=== PATIENT | male | born 1970 | race Caucasian/White ===

== ENCOUNTER → 2017-09-20 | Outpatient (CLI) | payer BC | LOC: OD 07:13 | PROVIDERS: ATTEND Urology | DX: E29.1 Testicular hypofunction (principal) | CPT/HCPCS: 36415; 84403 ==

== ENCOUNTER → 2017-11-04 | Outpatient (CLI) | payer BC ==
[2017-11-04 09:52] LABS: HEMATOCRIT 46.2 % (37.9-51.0); HEMOGLOBIN 15.7 g/dL (13.5-17.0); MEAN CORPUSCULAR HEMOGLOBIN 32.2 pg (27.0-33.4); MEAN CORPUSCULAR HGB CONC 33.9 g/dL (32.0-36.0); MEAN CORPUSCULAR VOLUME 95 fl (80-97); PLATELET COUNT 253 10^3/uL (150-450); RED BLOOD COUNT 4.87 10^6/uL (4.35-5.55); RED CELL DISTRIBUTION WIDTH 13.2 % (11.5-14.0); WHITE BLOOD COUNT 4.4 10^3/uL (4.0-10.5)
[2017-11-04 10:15] LABS: ALANINE AMINOTRANSFERASE 71 U/L (21-72); ALBUMIN 4.3 g/dL (3.5-5.0); ALKALINE PHOSPHATASE 72 U/L (38-126); ANION GAP 13 (5-19); ASPARTATE AMINO TRANSFERASE 36 U/L (17-59); BILIRUBIN,DIRECT 0.2 mg/dL (0.0-0.4); BILIRUBIN,TOTAL 0.2 mg/dL (0.2-1.3); BLOOD UREA NITROGEN 11 mg/dL (7-20); CALCIUM 9.6 mg/dL (8.4-10.2); CARBON DIOXIDE 26 mmol/L (22-30); CHLORIDE 103 mmol/L (98-107); GLUCOSE 95 mg/dL (75-110); POTASSIUM 4.6 mmol/L (3.6-5.0); SODIUM 141.6 mmol/L (137-145); TOTAL PROTEIN 6.5 g/dL (6.3-8.2)
== END ==
LOC: OD 08:35
PROVIDERS: ATTEND Urology
DX: E29.1 Testicular hypofunction (principal)
CPT/HCPCS: 36415; 80053; 84403; 85027

== ENCOUNTER 2019-02-08 16:53 | Emergency (ER) | payer BC ==
[2019-02-08 17:14] VITALS: BP 178/96
[2019-02-08] MEDS ORDERED: NORMAL SALINE 1000 ML 1,000 ML IV ONE (17:34)
[2019-02-08] MEDS ORDERED: ONDANSETRON HCL INJ/PF 4 MG/2 ML SDV IV ONE (17:34)
[2019-02-08] MEDS ORDERED: MORPHINE SULFATE 10 MG/ML INJ IV ONE (17:35)
[2019-02-08] MEDS ORDERED: KETOROLAC TROMETHAMINE INJ/PF 30 MG/1 ML SDV IV ONE (17:35)
--- NOTE | 2019-02-08 17:37 | ER Document Report ---
Addendum entered and electronically signed by DILAN WATTS PA-C 02/08/19 20:15: Course - Re-evaluation Re-evalutation: 02/08/19 20:15 Pt cannot get to a pharmacy tonight so meds will be given here and he can fill the rx tomorrow morning. - Vital Signs Vital signs: Temp Pulse Resp BP Pulse Ox 97.8 F 74 17 178/96 H 99 02/08/19 17:12 02/08/19 17:12 02/08/19 17:12 02/08/19 17:12 02/08/19 17:12 - Laboratory Result Diagrams: 02/08/19 17:50 02/08/19 17:50 Laboratory results interpreted by me: 02/08/19 02/08/19 02/08/19 17:50 17:50 17:50 WBC 10.8 H Seg Neutrophils % 86.1 H Lymphocytes % 8.2 L Absolute Neutrophils 9.3 H ALT 130 H Urine Ketones 20 H Urine Blood LARGE H Ur Leukocyte Esterase MODERATE H Urine Ascorbic Acid 40 H Original Note: ED General - General Chief Complaint: Flank Pain Stated Complaint: FLANK PAIN Time Seen by Provider: 02/08/19 17:30 Primary Care Provider: MINDY MURRIETA MD [Primary Care Provider] - Follow up as needed TRAVEL OUTSIDE OF THE [place] IN LAST 30 DAYS: No - HPI Notes: Patient is a 49-year-old male with no significant past medical history aside from kidney stones who presents complaining of right flank pain that is now to his right lower abdomen that began last night. Patient states that the pain has been coming in waves with associated nausea and vomiting. Patient states that he has not been urinating today. Patient states that the symptoms are similar to previous kidney stone flareups. No surgical history to his abdomen. Denies any headache, fever, URI, sore throat, chest pain, palpitations, syncope, cough, shortness of breath, wheeze, dyspnea, diarrhea, loss of control of bowel or bladder, numbness/tingling, saddle anesthesia, muscle paralysis/weakness, or rash. - Related Data Allergies/Adverse Reactions: naproxen Allergy (Verified 02/08/19 17:08) Past Medical History - Social History Smoking Status: Former Smoker Chew tobacco use (# tins/day): No Frequency of alcohol use: Occasional Drug Abuse: None Family History: Reviewed & Not Pertinent Patient has suicidal ideation: No Patient has homicidal ideation: No Renal/ Medical History: Reports: Hx Kidney Stones. Denies: Hx Peritoneal Dialysis Past Surgical History: Reports: Hx Orthopedic Surgery - right elbow, left wrist Review of Systems - Review of Systems -: Yes All other systems reviewed and negative Physical Exam - Vital signs Vitals: Temp Pulse Resp BP Pulse Ox 97.8 F 74 17 178/96 H 99 02/08/19 17:12 02/08/19 17:12 02/08/19 17:12 02/08/19 17:12 02/08/19 17:12 - Notes Notes: PHYSICAL EXAMINATION: GENERAL: Well-appearing, well-nourished and in no acute distress. LUNGS: Breath sounds clear to auscultation bilaterally and equal. No wheezes rales or rhonchi. HEART: Regular rate and rhythm without murmurs, rubs, gallops. ABDOMEN: Soft, nontender, nondistended abdomen. No guarding, no rebound. Normal bowel sounds present. + mild rt CVA tenderness bilaterally. Musculoskeletal: FROM to passive/active. Strength 5+/5. Extremities: No cyanosis, clubbing, or edema b/l. Peripheral pulses 2+. Capillary refill less than 3 seconds. NEUROLOGICAL: Normal speech, normal gait. PSYCH: Normal mood, normal affect. SKIN: Warm, Dry, normal turgor, no rashes or lesions noted. Course - Re-evaluation Re-evalutation: 02/08/19 19:53 Patient is an afebrile, well-hydrated, 49-year-old male who presents with proximal right 4 mm ureteral stone and possible mild UTI. Vitals are acceptable without significant tachycardia, tachypnea, or hypoxia. PE is otherwise un remarkable. CBC shows mildly elevated white count. CMP unremarkable. Urinalysis is questionable for urinary infection. I did call and consult with urology, Dr. Winslow (purdum), who recommends outpatient management with antibiotics and follow-up in their office. See CT scan report. No further work-up warranted at this time. Patient is nontoxic-appearing and is able to tolerate p.o. without. Low suspicion/risk for acute appendicitis, bowel obstruction, acute cholecystitis, perforated diverticulitis, incarcerated hernia, pancreatitis, perforated ulcer, peritonitis, sepsis, testicular torsion, or other systemic emergent condition at this time. Patient is aware that his condition can change from initial presentation and he needs to monitor symptoms closely and seek medical attention if any acute changes. Conservative measures otherwise for symptoms. Recheck with PCM in 3-5 days. Schedule appointment with [facility] urology as reviewed. Return to the ED with any worsening/co ncerning symptoms otherwise as reviewed in discharge. Patient is in agreement. - Vital Signs Vital signs: Temp Pulse Resp BP Pulse Ox 97.8 F 74 17 178/96 H 99 02/08/19 17:12 02/08/19 17:12 02/08/19 17:12 02/08/19 17:12 02/08/19 17:12 - Laboratory Result Diagrams: 02/08/19 17:50 02/08/19 17:50 Laboratory results interpreted by me: 02/08/19 02/08/19 02/08/19 17:50 17:50 17:50 WBC 10.8 H Seg Neutrophils % 86.1 H Lymphocytes % 8.2 L Absolute Neutrophils 9.3 H ALT 130 H Urine Ketones 20 H Urine Blood LARGE H Ur Leukocyte Esterase MODERATE H Urine Ascorbic Acid 40 H Discharge - Discharge Clinical Impression: Right ureteral stone, Dysuria Condition: Stable Disposition: HOME, SELF-CARE Additional Instructions: Push fluids (i.e. water, cranberry juice) Proper hygenic technique Keep the skin clean Tylenol/ibuprofen as needed May use over the counter AZO for burning with urination Take medications as directed F/u with your PCM in 3-5 days for a recheck Schedule appointment with [facility] urology. Return to the ED with any worsening symptoms and/or development of fever, headache, chest pain, palpitations, syncope, shortness of breath, trouble breathing, abdominal pain, n/v/d, blood in stool/urine, loss of control of bowel/bladder, urinary retention, or other worsening symptoms that are concerning to you. Prescriptions: Cephalexin Monohydrate [Keflex 500 mg Capsule] 500 mg PO TID #21 capsule Morphine Sulfate [Morphine Ir 15 Mg Tablet] 15 mg PO TID #12 tablet Ondansetron [Zofran Odt 4 mg Tablet] 1 - 2 tab PO Q4H PRN #15 tab.rapdis PRN Reason: For Nausea/Vomiting Tamsulosin HCl [Flomax] 0.4 mg PO DAILY #10 cap.er.24h Forms: Elevated Blood Pressure Referrals: MINDY MURRIETA MD [Primary Care Provider] - Follow up as needed [facility] [Provider Group] - Follow up in 3-5 days
[2019-02-08 18:12] LABS: ABSOLUTE LYMPHOCYTES (AUTO) 0.9 10^3/uL (0.5-4.7); ABSOLUTE MONOCYTES (AUTO) 0.5 10^3/uL (0.1-1.4); ABSOLUTE NEUT (AUTO) 9.3 10^3/uL (1.7-8.2); BASOPHILS % (AUTO) 0.4 % (0-2); EOSINOPHILS % (AUTO) 0.4 % (0-6); HEMATOCRIT 42.3 % (37.9-51.0); HEMOGLOBIN 14.8 g/dL (13.5-17.0); LYMPHOCYTES % (AUTO) 8.2 % (13-45); MEAN CORPUSCULAR HEMOGLOBIN 32.4 pg (27.0-33.4); MEAN CORPUSCULAR HGB CONC 34.9 g/dL (32.0-36.0); MEAN CORPUSCULAR VOLUME 93 fl (80-97); MONOCYTES % (AUTO) 4.9 % (3-13); PLATELET COUNT 248 10^3/uL (150-450); RED BLOOD COUNT 4.56 10^6/uL (4.35-5.55); RED CELL DISTRIBUTION WIDTH 12.9 % (11.5-14.0); SEGMENTED NEUTROPHILS % (AUTO) 86.1 % (42-78); TOTAL CELLS COUNTED % (AUTO) 100 %; WHITE BLOOD COUNT 10.8 10^3/uL (4.0-10.5)
[2019-02-08 18:35] LABS: ALANINE AMINOTRANSFERASE 130 U/L (21-72); ALBUMIN 4.6 g/dL (3.5-5.0); ALKALINE PHOSPHATASE 99 U/L (38-126); ANION GAP 10 (5-19); ASPARTATE AMINO TRANSFERASE 55 U/L (17-59); BILIRUBIN,DIRECT 0.2 mg/dL (0.0-0.4); BILIRUBIN,TOTAL 0.6 mg/dL (0.2-1.3); BLOOD UREA NITROGEN 13 mg/dL (7-20); CALCIUM 9.8 mg/dL (8.4-10.2); CARBON DIOXIDE 26 mmol/L (22-30); CHLORIDE 101 mmol/L (98-107); GLUCOSE 95 mg/dL (75-110); LIPASE 77.2 U/L (23-300); POTASSIUM 4.2 mmol/L (3.6-5.0); SODIUM 137.1 mmol/L (137-145); TOTAL PROTEIN 7.3 g/dL (6.3-8.2)
[2019-02-08 18:43] LABS: APPEARANCE,URINE SLIGHTLY-CLOUDY; BILIRUBIN,URINE NEGATIVE (NEGATIVE); CALCIUM OXALATE CRYSTALS,URINE RARE /HPF; COLOR,URINE YELLOW; GLUCOSE, URINE NEGATIVE (NEGATIVE); KETONES,URINE 20 mg/dL (NEGATIVE); LEUKOCYTE ESTERASE,URINE MODERATE (NEGATIVE); NITRITE,URINE NEGATIVE (NEGATIVE); PROTEIN,URINE NEGATIVE (NEGATIVE); URINE SPECIFIC GRAVITY 1.023; UROBILINOGEN,URINE NEGATIVE mg/dL (<2.0)
--- NOTE | 2019-02-08 19:06 | RADIOLOGY REPORT (SQ) ---
EXAM DESCRIPTION: CT ABD/PELVIS NO ORAL OR IV COMPLETED DATE/TIME: 02/08/2019 6:33 pm REASON FOR STUDY: Rt flank/anterior abd pain, h/o stones COMPARISON: None. TECHNIQUE: CT scan of the abdomen and pelvis performed without intravenous or oral contrast. Images reviewed with lung, soft tissue, and bone windows. Reconstructed coronal and sagittal MPR images revi ewed. All images stored on PACS. All CT scanners at this facility use dose modulation, iterative reconstruction, and/or weight based d osing when appropriate to reduce radiation dose to as low as reasonably achievable (ALARA). [facility]: Dose Right [facility]: CareDose [facility]: Dose Right [facility]: Teradose 4D [facility]: [employer] RADIATION DOSE: CT Rad equipment meets quality standard of care and radiation dose reduction techniq ues were employed. CTDIvol: 19.2 mGy. DLP: 1122 mGy-cm.mGy. LIMITATIONS: None. FINDINGS: LOWER CHEST: Dependent atelectasis in lung bases. . NON-CONTRASTED LIVER, SPLEEN, ADRENALS: LIVER: Fatty infiltration. SPLEEN: No abnormality. ADRENAL S: No abnormality. PANCREAS: No abnormality. GALLBLADDER: No abnormality. RIGHT KIDNEY AND URETER: Tiny nonobstructive calculi in mid and lower pole of right kidney. There i s evidence of a ectasia of the right upper collecting system and right ureter down to the a 4 mm prox imal right ureteral calculi. The remainder of the right ureter demonstrates no abnormality. LEFT KIDNEY AND URETER: 2 small nonobstructive calculi in lower pole left kidney. Tiny calculus uppe r pole left kidney. Left ureter demonstrates no abnormality. AORTA AND RETROPERITONEUM: No aneurysm. No retroperitoneal masses or adenopathy. BOWEL AND PERITONEAL CAVITY: No obvious masses or inflammatory changes. No free fluid. APPENDIX: Normal. PELVIS, BLADDER, AND ABDOMINAL WALL:Urinary bladder: Decompressed. Thick-walled. Prostate and semi nal vesicles: No abnormality. BONES: No significant findings. IMPRESSION: 1. There are bilateral nonobstructive renal caliceal calculi. 2. Small 4 mm proximal right ureteral calculus. 2. Fatty infiltration of liver. Otherwise, normal CT abdomen and pelvis w ithout contrast. COMMENT: Quality ID # [id number]: Final reports with documentation of one or more dose reduction techniques (e.g., Automated exposure control, adjustment of the mA and/or kV according to patient size, use of iterative reconstruction technique) TECHNICAL DOCUMENTATION: JOB ID: [id number] [employer]- All Rights Reserved Reading location - IP/workstation name: [email or web address]
[2019-02-08] MEDS ORDERED: CEFTRIAXONE 1 GM/D5W RTU 1 GM/50 ML RTUPB IV ONE (19:52)
[2019-02-08] MEDS ORDERED: ONDANSETRON ODT 4 MG TAB (6 TAB/ER DISP) PO PRN (20:14)
[2019-02-08] MEDS ORDERED: CEPHALEXIN 500 MG CAPSULE PO ONE (20:14)
[2019-02-08] MEDS ORDERED: HYDROCODONE/ACETAMINOPHEN 5-325 MG (6 TAB/ER DISP) PO PRN (20:14)
[2019-02-08] MEDS ORDERED: TAMSULOSIN HCL 0.4 MG CAP.SR.24H PO ONE (20:14)
== END 2019-02-08 20:05 | disposition home or self-care (01) ==
LOC: ER 16:53
DX: N20.1 Calculus of ureter (principal); R30.0 Dysuria; R10.9 Unspecified abdominal pain; R10.31 Right lower quadrant pain; R11.2 Nausea with vomiting, unspecified; Z87.891 Personal history of nicotine dependence
CPT/HCPCS: 99284; 96361; 96374; 96375; 36415; 87086; 83690; 85025; 87088; 80053; 81001; 87186; 74176; J1885; J2270; J2405; J7030